=== PATIENT | male | born 1970 | race Caucasian/White ===

== ENCOUNTER 2024-07-05 13:33 | Outpatient (OUT) | payer OTHER, SELFPAY ==
--- NOTE | 2024-07-05 13:50 | XR_ITS ---
The [address] [address] Patient Name: CADEN WILDER MRN: [id number] date: 1970 Sex: M Assigned Patient Location: [facility] Current Patient Location: Accession/Order Number: [id number] Exam Date: 07/05/2024 13:55 Report Date: 07/07/2024 07:56 At the request of: DELANEY YOUNG Procedure: XR hand RT min 3V PROCEDURE: XR hand RT min 3V HISTORY: Attn : 5th MCP Joint pain after punching object COMPARISON: None. FINDINGS: BONES:Oblique fracture through distal neck of the 5th metacarpal with 2 mm proximal retraction and anterior displacement. Slight posterior apex angulation at the fracture site. No involvement of the distal articular surface. SOFT TISSUES:Mild soft tissue swelling. No radiopaque foreign body. EFFUSION:None visible. OTHER: Negative. XR/XR hand RT min 3V IMPRESSION: 1. Acute mildly displaced and mildly angulated 5th metacarpal fracture. Electronically authenticated by: SABIHA DENSON Date: 07/07/2024 07:56
== END 2024-07-05 13:34 | disposition home or self-care (01) ==
LOC: RAD 13:38
PROVIDERS: PCP Family Medicine; Visit Provider Family Medicine
DX: Z00.00 Encounter for general adult medical examination without abnormal findings (principal); M79.641 Pain in right hand; S62.396A Other fracture of fifth metacarpal bone, right hand, initial encounter for closed fracture
CPT/HCPCS: 73130